=== PATIENT | female | born 1960 | race Caucasian/White ===

== ENCOUNTER 2016-08-28 18:35 | Emergency (ER) | payer BC, OTHER ==
[~2016-08-28] VITALS: Ht 160 cm; Wt 80.0 kg
--- NOTE | 2016-08-28 18:36 | ERA ---
ER Documentation Chief Complaint Date/Time DATE: 08/28/16 TIME: 18:36 Chief Complaint Lower back pain HPI The patient is a 56-year-old female, presenting to the ER because of acute on chronic low back pain, the symptom was worse a few hours prior to arrival when she was at her friend's house. She attributed that the back pain exacerbated due to her recent uterine biopsy 2 weeks ago. The lower back pain is worse with movement, radiating down to the right lower extremity. She denies fever, chills , neck pain, chest pain, abdominal pain, vomiting, dysuria, diarrhea, constipation, fecal or urinary incontinence. She does not smoke nor drink Past medical history: Hypertension, chronic low back pain she had recent epidural, history of left shoulder calcific tendinitis, diabetes mellitus, psoriatic arthritis, asthma, endometriosis, IBS, hypothyroidism Past surgical history: Cholecystectomy, appendectomy, back surgery ROS All systems reviewed and are negative except as per history of present illness. Medications Home Meds Reported Medications Hydrocodone/Acetaminophen ([place] Johns 5-325 Tablet) 1 Each Tablet, 1 EACH PO for PAIN , TAB 08/28/16 Baclofen* (Baclofen*) 10 Mg Tablet, 10 MG PO Q8, TAB 08/28/16 Cyclobenzaprine Hcl* (Cyclobenzaprine Hcl*) 10 Mg Tablet, 10 MG PO Q8 Y for MUSCLE SPASMS, #60 TAB 08/28/16 Simvastatin* (Zocor*) 40 Mg Tablet, 40 MG PO QHS, #30 TAB 08/28/16 Levothyroxine Sodium* (Levothyroxine Sodium*) 125 Mcg Tablet, 125 MCG PO BEFORE BREAKFAST, #30 TAB 08/28/16 Aspirin* (Aspirin* EC) 325 Mg Tab, 325 MG PO DAILY, TAB 08/28/16 Ibuprofen* (Ibuprofen*) 200 Mg Capsule, 800 MG PO Q6 Y for PRN, CAP 08/28/16 Metformin Hcl* (Metformin Hcl*) 500 Mg Tablet, 500 MG PO WITH BREAKFAST DINNE, # 60 TAB PT TAKE 500MG QAM AND 1000MG AT QPM 08/28/16 Allergies Allergies: Coded Allergies: No Known Allergy (Unverified , 08/28/16) Physical Exam Vitals Vital Signs Date Time Temp Pulse Resp B/P Pulse Ox O2 Delivery O2 Flow Rate FiO2 08/28/16 18:41 84 16 148/83 99 Physical Exam Const: No acute distress. Head: Atraumatic. Eyes: Normal Conjunctiva. ENT: Normal External Ears, Nose and Mouth. Neck: Full range of motion. No meningismus. Resp: Clear to auscultation bilaterally. Cardio: Regular rate and rhythm, no murmurs. Abd: Soft, non distended, normal bowel sounds, non tender. Skin: No petechiae or rashes. Back: No midline or flank tenderness. Ext: Equivocal straight leg raising test Neur: Awake and alert. No focal deficit Psych: Normal Mood and Affect. Results 24 hrs Current Medications Medications (Trade) Dose Ordered Sig/Aditya Route PRN Reason Start Time Stop Time Status Last Admin Dose Admin Morphine Sulfate (morphine) 4 mg ONCE STAT IV 08/28/16 18:48 08/28/16 18:50 DC 08/28/16 19:01 Ondansetron HCl 4 mg 4 mg ONCE STAT IV 08/28/16 18:48 08/28/16 18:50 DC 08/28/16 19:01 Sodium Chloride (NS) 1,000 ml @ 1,000 mls/hr Q1H ONCE IV 08/28/16 19:00 08/28/16 19:59 08/28/16 19:05 Morphine Sulfate (morphine) 4 mg ONCE STAT IV 08/28/16 19:40 08/28/16 19:41 DC 08/28/16 19:45 Ondansetron HCl (Zofran Inj) 4 mg ONCE STAT IV 08/28/16 19:40 08/28/16 19:41 DC 08/28/16 19:44 Procedures/MDM MEDICAL MAKING DECISION: The patient is a 56-year-old, presenting with acute on chronic low back pain. She was treated with morphine 4 mg IV 2 for pain and Zofran 4 mg IV 2 for nausea with good response. The differential diagnoses considered include but are not limited to caudal equina syndrome, spinal abscess, DJD, diskitis, lumbar radiculopathy. Departure Diagnosis: Primary Impression: Acute exacerbation of chronic low back pain Condition: Good Comments She was advised to continue [place] Johns, Flexeril, Motrin and back MRI for further evaluation I discussed the findings with the patient. I advised the patient to follow-up with the primary physician in about 1-2 days, sooner if needed and return if any concern. FRANCISCO MADDOX MD Aug 28, 2016 18:36
[2016-08-28 18:41] VITALS: Ht 160 cm; Wt 80.0 kg
[2016-08-28] MEDS ORDERED: morphine 4 MG/ML VIAL IV STA ×2 (18:48→19:40)
[2016-08-28] MEDS ORDERED: ONDANSETRON 4 MG INJ IV STA ×2 (18:48→19:40)
[2016-08-28] MEDS ORDERED: SOD CHLORIDE 0.9% 1,000 ML IV ONE (19:00)
[2016-08-28] MEDS ORDERED: METF500T4 PO (19:42)
[2016-08-28] MEDS ORDERED: IBUP200C PO (19:43)
[2016-08-28] MEDS ORDERED: LEVO125T75 PO (19:45)
[2016-08-28] MEDS ORDERED: ASPI325T32 PO (19:45)
[2016-08-28] MEDS ORDERED: SIMV40TA2 PO (19:46)
[2016-08-28] MEDS ORDERED: CYCL-319 PO (19:46)
[2016-08-28] MEDS ORDERED: BACL10TA PO (19:47)
[2016-08-28] MEDS ORDERED: HYDR-906 PO (19:49)
[2016-08-28 20:10] VITALS: BP 153/79; PULSE 86; RESP 19
[2016-08-28] MEDS ORDERED: CYCLOBENZAPRINE 10 MG TAB PO ONE (20:30)
== END 2016-08-28 20:30 | disposition home or self-care (01) ==
LOC: E/R 18:35
DX: M54.5 Low back pain (principal); I10 Essential (primary) hypertension; J45.909 Unspecified asthma, uncomplicated; E11.9 Type 2 diabetes mellitus without complications; E03.9 Hypothyroidism, unspecified; Z79.82 Long term (current) use of aspirin; Z79.84 Long term (current) use of oral hypoglycemic drugs
CPT/HCPCS: 96374; 96375; 96376; 99284; J2270; J2405; J7030

== ENCOUNTER → 2016-08-30 | Outpatient (CLI) | payer BC ==
[~2016-08-30] MED LIST: ASPI325T32 PO; BACL10TA PO; CYCL-319 PO; HYDR-906 PO; IBUP200C PO; LEVO125T75 PO; METF500T4 PO; SIMV40TA2 PO
[2016-08-30 11:50] LABS: CREATININE 0.77 mg/dl (0.44-1.00)
== END | disposition home or self-care (01) ==
LOC: LAB 11:08
PROVIDERS: ATTEND Specialist
DX: M54.5 Low back pain (principal)
CPT/HCPCS: 82565; 84520